=== PATIENT | female | born 1940 ===

== ENCOUNTER 2021-12-02 11:32 | Inpatient (IN) | payer MEDICARE ==
[2021-12-02] VITALS (9 sets, daily range): BP systolic 101–142; BP diastolic 40–62; PULSE 60–106; TEMP 97.9–98
[~2021-12-02] VITALS: Ht 157.5 cm; Wt 53.2 kg
[2021-12-02] MEDS ORDERED: MULTIVITAMIN200 MCG PO (13:58)
--- NOTE | 2021-12-02 19:03 | NUR ---
PT ARRIVED TO ROOM 331 VIA BED AT 1835. VSS. PT ACTIVELY NAUSEOUS, PACU NURSE STATES SHE WAS GIVEN ZOFRAN PRIOR TO TRANSFER TO FLOOR. PT RATING BLADDER SPASMS 05/06. ON 2L NC. PT'S SPOUSE AT BEDSIDE.
--- NOTE | 2021-12-02 22:28 | NUR ---
Patient assessed around 2039. Alert and oriented, and able to make needs known. Did have some pain and discomfort, recently given B&O suppository per orders. Indwelling becker catheter patent. CBI running very slow, clear urine, no clots noted. IV to right forearm with IV fluids running per orders. Denies SOB and dyspnea. Had been on oxygen at 2 L/min via NC post-op. Weaned back to room air. Denies nausea and upset stomach at this time. Took medications with jellow due to difficulty swallowing pills, which patient reports is normal for her. Patient voices no further questions, needs, or concerns at this time. Patient and from [place]. This nurse spoke with Machine Programmer, lencho for patient's to stay the night tonight. Patient in bed with call light within reach.
[2021-12-03] VITALS (7 sets, daily range): BP systolic 98–119; BP diastolic 32–58; PULSE 59–64; TEMP 97.5–98.2
--- NOTE | 2021-12-03 06:17 | NUR ---
CBI running very slow. Urine clear, no clots. Did have small amount of emesis after drinking some tea. Given PRN Zofran per orders. Voices no questions, needs, or concerns at this itme. In bed with call light within reach.
[2021-12-03 06:46] LABS: BASO % 0.3 % (0.0-2.0); GRAN # 6.3 K/mm3 (1.4-6.5); GRAN % 84.8 % (42.2-75.2); LYMPH # 0.9 K/mm3 (1.2-3.4); LYMPH % 11.4 % (20.0-51.0); MEAN CELL VOLUME 88 fl (80.0-100.0); MEAN CORPUSCULAR HGB CONC 31 g/dl (33.0-37.0); MEAN PLATELET VOLUME 10.4 fl (7.4-10.4); MONO # 0.2 K/mm3 (0.1-0.6); PLATELET COUNT 277 K/mm3 (130-400); RED BLOOD COUNT 3.24 M/mm3 (4.10-5.30)
[2021-12-03 07:01] LABS: HEMATOCRIT 28.5 % (37.0-47.0); HEMOGLOBIN 8.8 g/dl (12.5-16.0); MEAN CORPUSCULAR HEMOGLOBIN 27 pg (27-31)
--- NOTE | 2021-12-03 08:00 | NUR ---
Pt VSS & no complaints of shortness of breath. AP 62 with RRR & LCTA. When head of bed elevated pt coughing up foamy clear sputum & is relieved when head of bed lowered. R radial pulse weaker that L. 2+ edema to BLE & pedal pulses difficult to palapte. ABSx4 & last BM was small formed this morning. Pt has indwelling catheter producing yellow urine with no blood & securement device intact on R thigh. Skin is CDI with bandaids on L 2nd & 3rd toe from hammer toe surgery last month. IV in R forearm intact with no signs of infiltration or phlebitis running 1,000 mL 1/2 NS 20 mEq KCl at 60 ml/hr. CBI running on a slow dripwith no blood seen in becker bag. Urology PA in room with pt. Pt reports that didnt approve of surgey & wanted pt to let it run its course. No complaints of pain or discomfort at this time.
--- NOTE | 2021-12-03 09:00 | NUR ---
Pt resting in bed at this time. She has no complaints, but pt is not able to keep anything down. She states that she does not feel nauseated, but shortly after eating or drinking anything, she does vomit. CBI continues to be off. Clear yellow output in catheter. Pts at bedside
[2021-12-03 09:16] LABS: CALCIUM 7.9 mg/dL (8.4-10.2); CREATININE, serum 2.13 mg/dL (0.57-1.11); POTASSIUM 5.7 mmol/L (3.5-4.5)
--- NOTE | 2021-12-03 10:00 | NUR ---
Pt resting in bed, lab results back. Notified Matthew MCCAIN and fluids stopped at this time. Assessment completed and noticed IV in right forearm was infiltrated. IV removed by student. Pt is alert and oriented, but very forgetful. Bed alarm is on
--- NOTE | 2021-12-03 10:53 | NUR ---
R forearm IV showing signs of infiltration: pt complained of pain, swelling & cool to touch. IV discontinued with tip intac, pressure applied & covered by 2x2 gauze & tape. Ice pack applied to R forearm.
--- NOTE | 2021-12-03 13:13 | NUR ---
Several visit attempts; Nurses with [facility] spoke with her and offered God's blessings to Jania and mentioned to her that Top Case Assembler will look in on Jania tomorrow unless she requests Top Case Assembler return today. He stated he was sure tomorrow will be better.
--- NOTE | 2021-12-03 13:27 | NUR ---
Discussed home medications with pt. Pt stated that she only takes a multivitamin. She does have other medications, but she states she does not take them
--- NOTE | 2021-12-03 13:51 | NUR ---
Boring Machine Operator Production met with patient to discuss discharge planning. Patient lives in [place] with her , Hang (ph#[phone]) and sees Dr. Vale Thompson for primary care. Patient stated she obtains medications from a new, local pharmacy but cannot remember the name. Patient does not use any DME and reports independence with ADLS. Patient states she believes her son, Eric Sands has DPOA-HC. Patient plans to return home at time of discharge. Discharge Plan: Home
--- NOTE | 2021-12-03 19:02 | NUR ---
RECEIVED CHANGE OF SHIFT REPORT FROM DAY SHIFT RN.
--- NOTE | 2021-12-03 19:40 | NUR ---
COMPLAINS OF SOME NAUSEA WHILE TAKING D.O KAYEXAL[place], SEE MAR FOR MEDS GIVEN. DENIES CHEST PAIN/SOA AT THIS TIME. AT BEDSIDE. PATIENT WITH CLEAR SPEECH WITH INAPPROPRIATE RESPONSES WITH CONVERSATION, TO ORIENTED TO PLACE/EVENT. IV FLUIDS INFUSING WITH NO PROBLEMS. CONTINUES TO EAT OFF SUPPER TRAY PER PATIENT REQUEST.
--- NOTE | 2021-12-03 22:05 | NUR ---
DR DESAI CALLED NURSING WANTING TO HAVE CT CHEST/ABD/PELVIS DONE W/O CONTRAST TONIGHT, ORDER PLACED AND CT CALLED TO HAVE TESTING DONE ORDERED.
--- NOTE | 2021-12-03 23:05 | NUR ---
PATIENT HAD CT CHEST/ABD/PELVIS DONE PER D.O. VOMITED AFTER BACK IN BED FROM CT TABLE OF 100 ML LIGHT BROWNISH EMESIS WITH SOME UNDIGESTED FOOD PARTICLES OBSERVED. NO FURTHER COMPLAINTS OF N/V AFTER EMESIS. PATIENT BACK TO ROOM WHERE SPOUSE WAITED FOR PATIENT TO RETURN TO HOSPITAL ROOM.
[2021-12-04] VITALS (26 sets, daily range): BP systolic 103–137; BP diastolic 34–73; PULSE 50–68; TEMP 97.6–98.5
--- NOTE | 2021-12-04 06:00 | NUR ---
OBSERVED CBI CREDIT AT START OF SHIFT OFF, CORRECTIONS MADE DURING SHIFT WITH ACCURATE CBI CREDIT GIVEN TO DAY SHIFT RNCHUCKIE, AT CHANGE OF SHIFT REPORT.
[2021-12-04 06:29] LABS: CALCIUM 7.8 mg/dL (8.4-10.2); CREATININE, serum 2.19 mg/dL (0.57-1.11); POTASSIUM 4.6 mmol/L (3.5-4.5)
--- NOTE | 2021-12-04 08:00 | NUR ---
PATIENT IS A&O. VSS. DENIES PAIN OR NAUSEA AT THIS TIME. VO TO DD WITH CBI INFUSING AT SLOW RATE. NOTED MOD AMOUNTS OF CLEAR YELLOW URINE. IV FLUIDS INFUSING INTO RIGHT FORARM IV. NPO FOR PROCEDURE. OBTAINED CONSENT FOR RADIOLOGY PROCEDURE THAT WILL OCCURE PRIOR TO GOING TO THE OR TODAY. AT BEDSIDE. UROLOGY ROUNDING, SEE ORDERS. HEAD TO TOE ASSESSMENT COMPLETE.
--- NOTE | 2021-12-04 10:45 | NUR ---
PATIENT BACK IN ROOM FROM RADIOLOGY. NOTIFIED, OR NOTIFIED. CONSENT OBTAINED. PATIENT C/O A LOT OF DISCOMFORT. RADIOLOGY GAVE A DOSE OF FENTANYL. SEE FLOOR ORDERS IF NEEDED. PATIENT POSITIONED ONTO BELLY TO COMFORT. PATIENT RESTING. CBI STILL INFUSING AT SLOW RATE. NOTED MOD AMOUNTS OF CLEAR YELLOW URINE. IV FLUIDS INFUSING VIA GRAVITY. OR TO COME GET PATIENT IN THE NEXT 10-15 MINUTES.
--- NOTE | 2021-12-04 10:58 | NUR ---
PATIENT GOING DOWN TO OR VIA BED. LEFT WHEN PATIENT WENT DOWN TO RADIOLOGY EARLIER THIS AM AND HAS NOT RETURNED HOWEVER, HE DID KNOW THE PLAN FOR THE DAY. PATIENT OFF FLOOR.
--- NOTE | 2021-12-04 11:05 | NUR ---
Land Acquisition Analyst collaborated with RN about ordering PT/OT orders.
[2021-12-04] MEDS ORDERED: PYRIDIUM 100MG100 MG PO (11:37)
--- NOTE | 2021-12-04 12:55 | NUR ---
PATIENT BACK IN ROOM POST OP. ORIENTED BUT DROWSY. VSS. VO TO DD WITH SMALL AMOUNTS OF PINK COLORED URINE NOTED, NO CLOTS. IV FLUIDS INFUSING VIA GRAVITY INTO RIGHT FORARM IV. NO C/O N/V. IS NOT BACK YET. PATIENT RESTING WITH CALL LIGHT IN REACH AND BED ALARM ON.
--- NOTE | 2021-12-04 13:13 | NUR ---
ROUNDING, NO NEW ORDERS AT THIS TIME.
--- NOTE | 2021-12-04 16:00 | NUR ---
REPORTED OFF TO MARVIN CARRASQUILLO WHO IS TAKING OVER CARE.
--- NOTE | 2021-12-04 21:00 | NUR ---
PT IN BED, IS ALERT AND ORIENTED X3. HAS IVF INFUSING TO RFA WITHOUT REDNESS OR SWELLING. HAS VO TO BSD WITH PINK URINE, SOME SEDIMENT NOTED. AT BEDSIDE. PT REPORTS SHE IS ABLE TO TURN SIDE TO SIDE ON HER OWN. DENIES PAIN OR NAUSEA AT THIS TIME.
[2021-12-05 03:30] VITALS: BP 118/60; PULSE 64; TEMP 98.4
--- NOTE | 2021-12-05 06:00 | NUR ---
PT HAS GOOD URINE OUTPUT FROM VO. DENIES NEEDS AT THIS TIME.
[2021-12-05 07:13] LABS: CALCIUM 7.9 mg/dL (8.4-10.2); CREATININE, serum 1.81 mg/dL (0.57-1.11); POTASSIUM 4.3 mmol/L (3.5-4.5)
--- NOTE | 2021-12-05 07:50 | NUR ---
Pt doing well this morning. Dr Kern has been in to see patient and to discuss discharge. Pts present in the room. Assisted pt with ordering breakfast. Pt reports not having any pain. Pt was assisted to the restroom and did have a bowel movement. Pt denies any other needs
[2021-12-05 08:00] VITALS: BP 136/89; PULSE 69; TEMP 98
--- NOTE | 2021-12-05 09:18 | NUR ---
Initial visit; Patient thanked Manager Orange for looking in on her and offering God's blessings and wishing her well as she departs the hospital today.
--- NOTE | 2021-12-05 09:38 | NUR ---
Pt assisted back to bed. Pt did well transferring, no complaints of pain. Pt does have incision to her left foot. Pt recently had hammer toe surgery. She does have bandaids on two of her toes. They do have drainage on them, but she reports that she was told not to remove them until her follow up appointment. Incision is well approximated, no redness or drainage noted. There is an yanelis wrap to her foot/ankle. Pt does have a dried/hard area to her the side of her big toe on her left foot. Pts remains at bedside
--- NOTE | 2021-12-05 10:00 | NUR ---
Notified NICK Barnes with nephrology that pt will be going home today per urology
--- NOTE | 2021-12-05 10:45 | NUR ---
Still no discharge orders in. Pt/ under the impression that they were going to be able to go home this morning. Dr Kern has told them early this morning that PA would enter orders for discharge. Attempted to call him x2 with no answer. Called urology office and made them aware. Pt otherwise doing well. She was just up recently ambulating and did well with no pain complaints
--- NOTE | 2021-12-05 10:54 | NUR ---
PT notified SW that they would recommend a FWW. SW met with the patient's , Hang, to address the FWW. Hang states that they will be able to get a FWW in [place] and was not interested in SW getting the FWW ordered through insurance at this time. He had no concerns for SW. He states that the patient will either come back home with him or stay with their daughter for awhile. No additional needs at this time. *Discharge plan: home with or daughter*
--- NOTE | 2021-12-05 12:03 | NUR ---
Reviewed discharge instructions with pt to include catheter care. Called [facility] to have becker catheter removed Wednesday morning. Pt aware of this and script for this sent with them. INT removed from right forearm and pt escorted out
== END 2021-12-05 12:12 | disposition home or self-care (01) | DRG 661 ==
LOC: SDCO 11:32 → SURG 18:52 → SDCO 12-03 11:49 → SURG 12-05 12:12
PROVIDERS: ADMIT Urology
PROC: 0T788DZ Dilation of Bilateral Ureters with Intraluminal Device, Via Natural or Artificial Opening Endoscopic (ICD-10-PCS; principal; 2021-12-04 12:00)
DX: N13.1 Hydronephrosis with ureteral stricture, not elsewhere classified (principal); N17.9 Acute kidney failure, unspecified; E87.5 Hyperkalemia; N18.31 Chronic kidney disease, stage 3a; C67.9 Malignant neoplasm of bladder, unspecified; I25.10 Atherosclerotic heart disease of native coronary artery without angina pectoris; E78.5 Hyperlipidemia, unspecified; Z95.0 Presence of cardiac pacemaker
CPT/HCPCS: OP; C1729; C1769; C2617; J0690; J1100; J1940; J2250; J2405; J2704; J3010; J3480; J7030; J7120; Q9967